=== PATIENT | female | born 1955 | race Caucasian/White ===

== ENCOUNTER 2016-05-03 16:43 | Emergency (ER) | payer MEDICAID ==
[~2016-05-03] VITALS: Ht 165.1 cm; Wt 67.6 kg
[~2016-05-03 16:43] MED LIST: ACTOS 15MG TABL15 MG PO; ACYCLOVIR 400M400 MG PO; AMLO5TAB PO; AMLODIPINE5 M1 PO; AMLODIPINE5 MG; AZITHROMYCIN250 M1 PO; BD ULTRA-FINE1 EAC1 MC; BUPROPION HCL100 MG; BUSPIRONE HCL10 MG PO; CILOSTAZOL50 MG; CIPRO 500MG TA500 MG PO; CLINDAMYCIN HC300 MG PO; COMBIVENT INH14.7 GM IN; FLEXERIL10 MG PO; FLOVENT 11110 MCG/PU IH; GABAPENTIN 400400 MG PO; GABAPENTIN300 M1 PO; GLIPIZIDE10 MG PO; HUMALOG KW100 UNIT/1 SQ; HYDROCHLOROTHIA25 M1; HYDROCHLOROTHIA25 M1 PO; IBU-8800 MG PO; KEFLEX 500MG.500 MG PO; KEFLEX250 M1 PO; KEPPRA 500 MG500 MG PO; LANTUS SOLOS100 U/ML SC; LISINOPRIL 20MG20 MG PO; LODINE200 MG PO; LORTAB 5/500 501 TAB PO; LORTAB 500 MG-71 TAB PO; MAGNESIUM CITRA1 BOT PO; METFORMIN1000 MG PO; METFORMIN500 MG; MONODOX100 MG PO; NAPROSYN 500MG500 MG PO; NEURONTIN 100100 MG PO; NEXIUM40 MG; NORCO 325 MG-51 TAB PO; PERCOCET 10 MG1 EACH PO; PHENERGAN 25MG.25 M1 PO; PHENERGAN 25MG.25 MG PR; PRAVASTATIN 20M20 MG; RT-ACCUNEB S3 ML/AMP IN; SEPTRA DS 800 M1 TAB PO; SINGULAIR10 MG; SKELAXIN 800MG800 MG PO; ST. JOSEPH81 M1 PO; TRAZODONE HCL50 MG PO; TRAZODONE50 MG PO; ULTRAM ER100 MG PO; VENTOLIN H0.09 MG/Ac IH; ZANAFLEX4 MG PO
[2016-05-03 17:19] LABS: URINE BILIRUBIN - DIPSTICK NEGATIVE (NEG); URINE BLOOD 1+ (NEG)
[2016-05-03 17:44] LABS: LYMPH # 3.1 K/mm3 (0.7-4.5); LYMPH % 25.9 % (10-50.0)
[2016-05-03 17:54] LABS: HEMOGLOBIN 13.3 g/dL (12.2-16.2)
--- NOTE | 2016-05-03 18:34 | RADIOLOGY REPORT PS360 ---
CT ABD PELVIS W/O CONTRAST CLINICAL INDICATION: RT FLANK PAIN ORDERING PHYSICIAN: Jung Sims MD PATIENT AGE: 60 years COMPARISON: 07/26/2010 TECHNIQUE: Axial images obtained with sagittal and coronal reformats. PROCEDURE: Oral Contrast: None IV Contrast: None . FINDINGS: Lung bases are clear. The liver, spleen, adrenal glands, and pancreas have an unremarkable unenhanced CT appearance. The gallbladder is contracted. The stomach is distended with good particles and secretions. Scattered small lymph nodes are present in the retroperitoneum. No renal calculi. There is minimal prominence of the proximal right ureter and minimal blurring of the right renal pelvis. This could be due to recently passed stone or urinary tract infection. The left kidney has an unremarkable appearance. There is mild diffuse thickening of the colon which may be due to nondistention or colitis. There has been a prior hysterectomy. There is no evidence of diverticulitis or appendicitis. There is mild distention of small bowel with scattered air-fluid levels. The terminal ileum is nondistended. Partial small bowel structure and or ileus is considered. IMPRESSION: 1. Minimal prominence of the right proximal ureter and haziness of the right parapelvic renal fat which could be due to recently passed stone or urinary tract infection. 2. No obstructing ureteral calculi apparent. 3. Thickening of the colon which may be due to nondistention or mild colitis. 4 scattered small retroperitoneal lymph nodes nonspecific for mildly distended small bowel loops with air-fluid levels with collapsed terminal ileum. Partial small bowel obstruction or ileus is considered. Consider repeating exam with IV and oral contrast if symptoms persist
[2016-05-03] MEDS ORDERED: FLAGYL500 M1 PO ×2 (19:44→19:45)
[2016-05-03] MEDS ORDERED: CIPRO 250MG TA250 MG PO (19:45)
--- NOTE | 2016-05-03 19:46 | Emergency Room Report ---
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 N Clinical Suspician of Infection? N Mental Status: 1 - Regular (Normal Baseline) Sepsis Risk:Low Sepsis Risk Have you (or family members/close friends) recently traveled outside the [place]? N If Yes, where/when: Have you had exposure to infectious disease within the past month? N TB? Other? Specify: Source patient, RN notes reviewed, family, RN/MD Exam Limitations no limitations Comment This is a 60-year-old lady arriving to the emergency room with RIGHT flank pain radiating down to the RIGHT groin, onset last night. The patient stated that he has had this pain off-and-on for at least 1 year. His latest episode started, as just stated, around 6 PM last night. Patient didn't go to to his family doctor because of insurance problems. Patient denies any diarrhea, nausea or vomiting. The patient was recently seen in this emergency room for a urinary tract infection, and she was subsequently admitted because of acute renal failure plus urinary tract infection. On discharge she was sent home with antibiotics, patient advised that no antibiotics were called in for her, so she did not take any oral antibiotics after leaving the hospital. ALLERGIES Coded Allergies: Sulfa (Sulfonamide Antibiotics) (04/29/16) codeine (04/29/16) Home Medications Active Scripts Amlodipine Besylate (Amlodipine) 5 MG PO DAILY #30 TAB Prov: 05/01/16 Insulin Glargine, Recombinan (Lantus Solostar 3ML) 20 UNITS SC QHS #5 ML Prov: 05/01/16 Insulin Lispro (Humalog Kwikpen) 8 UNIT SQ AC #5 DEV Prov: 05/01/16 Buspirone Hcl (Buspirone 10MG) 10 MG PO BID #10 TAB Prov: 05/01/16 Gabapentin (Neurontin) 100 MG PO TID #90 CAP Prov: 05/01/16 Pen Needle, Diabetic (Bd Ultra-Fine Pen Needle) 1 EACH ACHS #120 Prov: 05/01/16 Discontinued Scripts Cephalexin (Keflex 250MG) 250 MG PO Q8 #21 CAP Prov: 04/29/16 DC: 05/01/16 0744 Reported Medications Albuterol Sulfate (Ventolin Hfa) 2 PUFFS IH Q4HP PRN BREATHING #18 PUFF Discontinued Reported Medications Gabapentin 300 MG PO TID HYDROCHLOROTHIAZIDE (Hydrochlorothiazide) 25 MG PO DAILY LISINOPRIL (Lisinopril) 40 MG PO DAILY METFORMIN HCL (Metformin) 1,000 MG PO BID History Medical History General CAD? No Angina: Yes CA: Yes Hypertension? Yes Hyperlipidemia? Yes CHF? No DVT? No PE? No COPD? Yes Asthma? Yes Anemia? No GERD? No Gastric ulcers? No GI Bleed? No Hernia? No Thyroid Problems? No Hypothyroidism? No CVA? No Seizures? Yes Diabetes? Yes Insulin Dependent: No Insulin Pump: No Home FSBS? Yes Renal Insuffiency? Yes End Stage Renal Disease? No UTI? Yes Stones? No BPH? No GB Disease: No Nephritic Syndrome? No Asplenia? No Hepatitis? Yes Sickle Cell Disease? No Arthritis? Yes Migraines? No Cataracts? No Glaucoma? No MRSA? No HIV? No TB? No Anxiety? No Depression? No Cancer? Yes Site: CERVICAL More? 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 Physical Exam Vital Signs Vital Signs Date Time Temp Pulse Resp B/P Pulse O2 O2 Flow FiO2 Ox Delivery Rate 05/03 1999 98.7 63 20 143/77 98 05/03 195 98.7 63 20 143/77 98 05/03 1848 63 20 143/77 98 05/036 20 05/03 1745 73 20 157/76 96 05/03 1654 98.7 79 20 147/93 98 General Appearance normal appearance, WD/WN, mild distress Neck normal inspection, non-tender, supple, full range of motion Respiratory Status Yes: trachea midline, chest symmetrical, non tender chest. No: respiratory distress. Lung Sounds bilateral: normal breath sounds, lungs clear. 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 No Comment The patient appears medically stable, clinically improving, with great appetite, able to drink and eat while in the emergency room (soda plus peanut butter plus crackers), without any further symptoms. At no point during this emergency room evaluation she had any nausea, vomiting, diarrhea. I do not think this patient has any clinical signs or clinical suspicion of any bowel obstruction. Advised patient of results of today's workup as well as need to follow-up with her family doctor. Also instructed the patient that she needs to have a colonoscopy after current episode clears out, and she needs to ask her PCP to be referred to one of our local general surgeons or gastroenterologists in order to have this done (colonoscopy). For now she is going home with fluoroquinolones plus metronidazole, and she will schedule follow-up appointment but discharge instructions with Dr. Alcala. Results/Orders Laboratory Tests 05/03/16 1740: Opiates Screen NEGATIVE, Urine Methadone Screen NEGATIVE, Barbiturates NEGATIVE, Phencyclidine Screen NEGATIVE, Amphetamines Screen NEGATIVE, Benzodiazepines Screen POSITIVE H, Cocaine Screen NEGATIVE, Marijuana (THC) Screen NEGATIVE 05/03/16 1733: POC Glucose 250 H 05/03/16 1723: Sodium 136, Potassium 5.3 H, Chloride 101, Carbon Dioxide 26, BUN 24 H, Creatinine 1.1 H, Estimated Creat Clear 59, Estimated GFR (MDRD) 51 L, Glucose 262 H, Calcium 8.9, Total Bilirubin 0.1 L, AST 13 L, ALT 28, Alkaline Phosphatase 110, Total Protein 8.2, Albumin 2.7 L, Globulin 5.5 H, Albumin/ Globulin Ratio 0.5 L, Amylase 61, Lipase 246, WBC 11.8 H, RBC 4.35, Hgb 13.3, Hct 38.1, MCV 87.5, RDW 13.0, Plt Count 316, MPV 5.6 L, Gran % 68.9, Gran # 8.1 H, Lymphocytes % 25.9, Monocytes % 2.7, Eosinophils % 2.0, Basophils % 0.5, Lymphocytes # 3.1, Monocytes # 0.3, Eosinophils # 0.2, Basophils # 0.1, PUBS MCHC 34.9, MCH 30.5 05/03/161704: Urine Color YELLOW, Urine Appearance SL CLOUDY, Urine pH 6.0, Ur Specific [place] 1.010, Urine Protein NEGATIVE, Urine Ketones NEGATIVE, Urine Blood 1+ H , Urine Nitrate NEGATIVE, Urine Bilirubin NEGATIVE, Urine Urobilinogen 0.2, Ur Leukocyte Esterase NEGATIVE, Urine RBC 3-5, Urine WBC 5-10, Ur Squamous Epith Cells 5-10, Urine Bacteria 1+, Urine Glucose 3+ H Orders Procedure Date/time Status DIET-NOTHING BY MOUTH 05/[address] ABD/PELVIS REQ 05/03 1742 Complete DRUG ABUSE SCREEN (TRIAGE) 05/03 1740 Complete FINGERSTICK BLOOD SUGAR 05/03 1733 Complete IV SALINE LOCK 05/03 1711 Active URINALYSIS/COMPLETE 05/03 1708 Complete LIPASE 05/03 1708 Complete FSBS REQUEST BY CARE AREA 05/03 1708 Active CBC WITH AUTO DIFF 05/03 170 Complete CHEM 12 PROFILE 05/03 1708 Complete AMYLASE 05/03 1708 Complete CULTURE, URINE 05/03 1704 Complete XRAY/CT/US XRAY/CT/US CT abdomen, pelvis CT interpretation by discussed w/radiologist CT Results abnormal Comment Please see radiologist's report consistent with dilated RIGHT ureter and possible colitis, per Dr. Travis Guerrier Departure Departure Time of Disposition 1940 Disposition DC Home or Self Care(routine) Clinical Impression Primary Impression: Kidney stone Secondary Impressions: Abdominal pain Qualifiers: Abdominal location: right upper quadrant Qualified Code: R10.11 - Right upper quadrant pain Colitis Condition STABLE Referrals Tori MCGUIRE,Vinny Patel (Family) tomorrow as already scheduled Patient Instructions DI for Colitis, Kidney Stones -- Adult Additional Instructions Please take your medications as discussed, follow-up with Dr. Alcala in the office tomorrow. Discharge Counseling Counseled pt/family regarding diagnosis, test results, medications/RX, home care, follow up needs Comment Please keep RIGHT wrist elevated, in a sling, apply ice locally, take the pain medications as directed, follow-up with Dr. Appiah's office at your earliest convenience. Prescriptions Current Visit Scripts Metronidazole (Flagyl) 500 MG PO TID #20 TAB CIPROFLOXACIN HCL (Cipro 250MG TAB) 250 MG PO BID #14 TAB ED Critical Care Critical Care No at 0920
[2016-05-03 20:00] VITALS: BP 143/77
[2016-05-03 21:06] LABS: AMPHETAMINES/METAMPHETAMINES NEGATIVE ng/mL (<1000)
== END 2016-05-03 20:01 | disposition home or self-care (01) ==
LOC: ER 16:43
PROVIDERS: Emergency Medicine
DX: N20.0 Calculus of kidney (principal); I25.2 Old myocardial infarction; I10 Essential (primary) hypertension; E78.5 Hyperlipidemia, unspecified; J44.9 Chronic obstructive pulmonary disease, unspecified; J45.909 Unspecified asthma, uncomplicated; E11.9 Type 2 diabetes mellitus without complications; N28.9 Disorder of kidney and ureter, unspecified; K75.9 Inflammatory liver disease, unspecified
CPT/HCPCS: J2405

== ENCOUNTER → 2017-02-07 | Outpatient (CLI) | payer MEDICAID ==
[~2017-02-07] MED LIST changes: +CIPRO 250MG TA250 MG PO; +FLAGYL500 M1 PO
[2017-02-07 13:42] LABS: HEMOGLOBIN 14.4 g/dL (12.2-16.2); LYMPH # 4.1 K/mm3 (0.7-4.5); LYMPH % 39.9 % (10-50.0)
[2017-02-07 14:08] LABS: BUN 16 mg/dL (7-18); GFR (ESTIMATED) 57 ML/MIN (59-)
[2017-02-07 14:41] LABS: URINE BILIRUBIN - DIPSTICK NEGATIVE (NEG); URINE BLOOD NEGATIVE (NEG)
[2017-02-07 14:52] LABS: AMPHETAMINES/METAMPHETAMINES NEGATIVE ng/mL (<1000); URINE SQUAMOUS CELLS 20-50 #/hpf (0-5)
== END ==
LOC: LAB 13:20
PROVIDERS: Emergency Medicine
DX: I10 Essential (primary) hypertension (principal); E10.9 Type 1 diabetes mellitus without complications; Z79.899 Other long term (current) drug therapy